=== PATIENT | female | born 1980 | race African-American/Black ===

== ENCOUNTER 2019-01-28 13:50 | Emergency (ER) | payer BC, SELFPAY ==
[2019-01-28] MEDS ORDERED: Ondansetron PF 4 MG/2 ML Vial ONE (14:28)
[2019-01-28] MEDS ORDERED: Morphine 10 MG/ML VIAL ONE (14:28)
[2019-01-28 14:35] LABS: BHCG - Serum Negative (NEGATIVE); Pregs Control Background? CLEAR/WHITE (CLR/WHITE); Pregs Control Bar Appear? YES (CONTROL BAR)
[2019-01-28 14:46] LABS: #Basophils 0.1 thou/uL (0.0-0.2); #Lymphocytes 1.3 thou/uL (1.20-3.40); #Monocytes 0.3 thou/uL (0.11-0.59); #Neutrophils 7.8 thou/uL (1.40-6.50); %Eosinophils 0.2 % (0.0-10.0); %Lymphocytes 13.8 % (21.0-51.0); %Monocytes 2.8 % (0.0-10.0); %Neutrophils 82.3 % (42.0-75.0); Hemoglobin 6.7 g/dL (12.0-16.0); Mean Corpuscular HGB CONC 29.7 g/dL (32.0-36.0); Mean Corpuscular Volume 50.5 fL (78.0-98.0); Mean Platelet Volume 9.4 fL (7.4-10.4); Platelet Count 204 thou/uL (130-400); RBC Distribution Width 21.6 % (11.5-14.5); Red Blood Cell (RBC) Count 4.46 mill/uL (4.20-5.40); White Blood Cell (WBC) Count 9.5 thou/uL (4.8-10.8)
[2019-01-28 15:05] LABS: Anisocytosis MODERATE=16-30 cells (100X) (0-5/hpf); Hypochromia MODERATE=16-30 cells (100X) (0-5/hpf); MDiff Complete? YES; Macrocytosis SLIGHT = 6-15 cells (100X) (0-5/hpf); Microcytosis MODERATE=15-30 cells (100X) (0-5/hpf); Ovalocytes SLIGHT = 2-5 cells (100X) (0-1/hpf); Platelet Morphology Comment Appears Adequate; Polychromasia MODERATE = 3-4 cells (100X) (0-2/hpf); Reflex for Review?? YES; Schistocytes SLIGHT = 2-5 cells (100X) (0-1/hpf); Spherocytes SLIGHT = 1-5 cells (100X) (None Seen); Target Cells SLIGHT = 2-5 cells (100X) (0-1/hpf); Tear Drops SLIGHT = 2-5 cells (100X) (0-1/hpf)
--- NOTE | 2019-01-28 15:10 | ULT ---
EXAM: Pelvic ultrasound HISTORY: Right lower quadrant abdominal/pelvic pain COMPARISON: None TECHNIQUE: Multiple grayscale and color Doppler images were obtained in a transabdominal pelvic ultra sound. Spectral analysis of the Doppler waveforms of the ovaries were performed. The patient refused a transvaginal exam. FINDINGS: CERVIX: No evidence of nabothian cysts. UTERUS: Enlarged with multiple heterogeneous regions which likely represent fibroids. The largest nargis sures 6.9 cm in size. ENDOMETRIAL STRIPE: Cannot be visualized given the heterogeneous appearance of the uterus and transab dominal approach only. No free fluid is seen in the pelvis. RIGHT OVARY: No obvious focal mass. It is difficult to assess flow given the transabdominal approach only. LEFT OVARY: No obvious focal mass. It is difficult to assess flow given the transabdominal approach o nly. IMPRESSION: Enlarged heterogeneous uterus is likely secondary to multiple uterine fibroids.
--- NOTE | 2019-01-28 15:34 | CT ---
CT ABDOMEN AND PELVIS WITH IV CONTRAST: 01/28/19 HISTORY: Right lower quadrant pain. FINDINGS: The lung bases are clear. The liver, spleen, pancreas, adrenal glands and kidneys are normal. No calc ified gallstones are seen. No free air or lymphadenopathy seen. A normal appearing appendix is present. There is a large fibroid uterus with small amount of free flu id adjacent to the right ovary. A 17 mm low density lesion with enhancing granulated margins, consist ent with corpus luteal cyst is seen in the right ovary. IMPRESSION: 1. No evidence of appendicitis. 2. Enlarged fibroid uterus. 3. Corpus luteal cyst in the right ovary with adjacent free fluid. POS: OFF
[2019-01-28 15:44] LABS: Albumin 3.6 g/dL (3.5-5.0)
[2019-01-28 15:46] LABS: Calcium 8.1 mg/dL (7.8-10.44); Chloride 105 mmol/L (98-107); Potassium 3.8 mmol/L (3.5-5.1); Sodium 132 mmol/L (136-145)
[2019-01-28 15:47] LABS: Glucose 82 mg/dL (70-105); Protein, Total 6.6 g/dL (6.0-8.3)
[2019-01-28 15:48] LABS: Anion Gap 12 mmol/L (10-20); Carbon Dioxide 19 mmol/L (22-29)
[2019-01-28 15:49] LABS: Bilirubin, Total 0.5 mg/dL (0.2-1.2)
[2019-01-28 15:50] LABS: Alkaline Phosphatase 36 U/L (40-150); Calc. Creatinine Clearance 0 mL/min (70-130); Estimated GFR-MDRD Greater than 90
[2019-01-28 15:51] LABS: BUN (Urea Nitrogen) 9 mg/dL (7.0-18.7)
[2019-01-28 15:52] LABS: AST (SGOT) 13 U/L (5-34)
[2019-01-28 15:53] LABS: ALT (SGPT) 8 U/L (8-55)
== END 2019-01-28 16:39 | disposition home or self-care (01) ==
LOC: ERS 13:50
DX: D64.9 Anemia, unspecified (principal); D25.9 Leiomyoma of uterus, unspecified; R10.31 Right lower quadrant pain
CPT/HCPCS: 36415; 74177; 76856; 80053; 84703; 85025; 85060; 93976; 96361; 96374; 96375; J2270; J2405

== ENCOUNTER 2019-03-20 19:19 | Emergency (ER) | payer BC ==
[2019-03-20 19:48] LABS: Hemoglobin 5.8 g/dL (12.0-16.0); Mean Corpuscular HGB CONC 30.3 g/dL (32.0-36.0); Mean Corpuscular Hemoglobin 15.6 pg (27.0-31.0); Mean Corpuscular Volume 51.4 fL (78.0-98.0); Mean Platelet Volume 7.6 fL (7.4-10.4); Platelet Count 259 thou/uL (130-400); RBC Distribution Width 21.6 % (11.5-14.5); Red Blood Cell (RBC) Count 3.73 mill/uL (4.20-5.40); White Blood Cell (WBC) Count 6.4 thou/uL (4.8-10.8)
[2019-03-20 19:59] LABS: Anion Gap 13 mmol/L (10-20); BUN (Urea Nitrogen) 10 mg/dL (7.0-18.7); Calc. Creatinine Clearance 0 mL/min (70-130); Calcium 8.9 mg/dL (7.8-10.44); Carbon Dioxide 20 mmol/L (22-29); Chloride 109 mmol/L (98-107); Estimated GFR-MDRD Greater than 90; Glucose 103 mg/dL (70-105); Potassium 3.9 mmol/L (3.5-5.1); Sodium 138 mmol/L (136-145)
[2019-03-20 20:05] LABS: #Eosinphils 0.4 thou/uL (0.0-0.7); #Lymphocytes 1.9 thou/uL (1.20-3.40); #Monocytes 0.5 thou/uL (0.11-0.59); #Neutrophils 3.5 thou/uL (1.40-6.50); %Basophils 0.6 % (0.0-1.0); %Eosinophils 5.9 % (0.0-10.0); %Lymphocytes 30.4 % (21.0-51.0); %Monocytes 8.5 % (0.0-10.0); %Neutrophils 54.6 % (42.0-75.0); Anisocytosis MODERATE=16-30 cells (100X) (0-5/hpf); Hypochromia MODERATE=16-30 cells (100X) (0-5/hpf); Large Platelets SLIGHT; MDiff Complete? YES; Microcytosis MARKED = >30 cells (100X) (0-5/hpf); Platelet Morphology Comment Appears Adequate; Polychromasia SLIGHT = 2-3 cells (100X) (0-2/hpf); Schistocytes SLIGHT = 2-5 cells (100X) (0-1/hpf); Target Cells SLIGHT = 2-5 cells (100X) (0-1/hpf); Tear Drops SLIGHT = 2-5 cells (100X) (0-1/hpf)
== END 2019-03-20 22:45 | disposition home or self-care (01) ==
LOC: ERS 19:19
DX: D50.9 Iron deficiency anemia, unspecified (principal); J45.909 Unspecified asthma, uncomplicated
CPT/HCPCS: 36415; 36430; 80048; 85025; 86850; 86900; 86901; 99284; P9016

== ENCOUNTER 2019-05-10 14:45 | Outpatient (CLI) | payer BC ==
[2019-05-10 15:48] LABS: Hemoglobin 10.7 g/dL (12.0-16.0); Mean Corpuscular HGB CONC 33.9 g/dL (32.0-36.0); Mean Corpuscular Hemoglobin 25.1 pg (27.0-31.0); Mean Corpuscular Volume 74.1 fL (78.0-98.0); Mean Platelet Volume 5.7 fL (7.4-10.4); Platelet Count 322 thou/uL (130-400); RBC Distribution Width 26.3 % (11.5-14.5); Red Blood Cell (RBC) Count 4.27 mill/uL (4.20-5.40)
[2019-05-10 15:52] LABS: BHCG - Serum Negative (NEGATIVE); Pregs Control Background? CLEAR/WHITE (CLR/WHITE); Pregs Control Bar Appear? YES (CONTROL BAR)
== END 2019-05-10 14:46 | disposition home or self-care (01) ==
LOC: LABBT 14:45
PROVIDERS: ATTEND Obstetrics & Gynecology
DX: Z01.812 Encounter for preprocedural laboratory examination (principal); N92.0 Excessive and frequent menstruation with regular cycle; D25.9 Leiomyoma of uterus, unspecified; D64.9 Anemia, unspecified
CPT/HCPCS: 84703; 85027; 86850; 86900; 86901

== ENCOUNTER 2023-04-09 13:39 | Outpatient (CLI) | payer BC | END 2023-04-09 13:40 | disposition home or self-care (01) | LOC: BICULT 13:39 | PROVIDERS: ATTEND Family Medicine | DX: N63.11 Unspecified lump in the right breast, upper outer quadrant (principal); R59.0 Localized enlarged lymph nodes ==